=== PATIENT | female | born 1990 | race Hispanic/Latino ===

== ENCOUNTER → 2019-04-16 | Outpatient (CLI) | payer MEDICAID ==
--- NOTE | 2019-04-16 13:09 | NUR ---
MBSS COMPLETED. ASPIRATION WITH THIN LIQUIDS VIA STRAW SIP. RECOMMEND PUREED, THIN LIQUIDS VIA TSP, PILLS CRUSHED WITH APPLESAUCE. Addendum: 04/16/19 at 1310 by JOSE FRANCISCO DILLON, SPT ST Amended: Links added.
== END | disposition home or self-care (01) ==
LOC: RAH 09:18
PROVIDERS: ATTEND Internal Medicine Gastroenterology
DX: R13.10 Dysphagia, unspecified (principal); R63.3 Feeding difficulties
CPT/HCPCS: 74230; 92611